=== PATIENT | male | born 1980 | race Caucasian/White ===

== ENCOUNTER 2016-10-28 00:41 | Inpatient (IN) | payer BC ==
[2016-10-28] VITALS (18 sets, daily range): BP systolic 78–112; BP diastolic 37–53; PULSE 76–110; RESP 16–20; Ht 165.1 cm; Wt 71.0 kg
[~2016-10-28] VITALS: Ht 165.1 cm; Wt 71.0 kg
[2016-10-28] MEDS ORDERED: SOD CHLORIDE 0.9% 1,000 ML IV STA (01:09)
[2016-10-28] MEDS ORDERED: IBUP200C PO (02:00)
[2016-10-28 02:19] LABS: ADD SCAN DIFF NO
[2016-10-28 02:22] LABS: BASOPHILS % 0.4 % (0.0-2.0); EOSINOPHILS % 0.1 % (0.0-7.0); HEMATOCRIT 23.2 % (42.0-52.0); HEMOGLOBIN 7.9 g/dl (14.0-18.0); LYMPHOCYTES # 1.2 10^3/ul (0.8-2.9); LYMPHOCYTES % 11.9 % (15.0-51.0); MEAN CORPUSCULAR HGB CONC 34.1 g/dl (32.0-37.0); MONOCYTE # 0.5 10^3/ul (0.3-0.9); MONOCYTES % 4.8 % (0.0-11.0); NEUTROPHIL # 8.4 10^3/ul (1.6-7.5); NEUTROPHILS % 82.3 % (39.0-77.0); PLATELET COUNT 131 10^3/UL (140-415); RED BLOOD COUNT 2.55 10^6/ul (4.70-6.10); RED CELL DISTRIBUTION WIDTH 11.9 % (11.5-14.5); WHITE BLOOD COUNT 10.2 10^3/ul (4.8-10.8)
[2016-10-28 02:38] LABS: INR 1.27; PT RATIO 1.3
[2016-10-28 02:39] LABS: PARTIAL THROMBOPLASTIN TIME 28.2 Sec (25.0-35.0)
[2016-10-28] MEDS ORDERED: HYDROmorphONE 1 MG/ML SYG IV STA (02:47)
[2016-10-28 02:48] LABS: ALANINE AMINOTRANSFERASE 42 IU/L (13-69); ALBUMIN 3.6 g/dl (3.3-4.9); ALBUMIN/GLOBULIN RATIO 2.11; ALKALINE PHOSPHATASE 44 IU/L (42-121); ANION GAP 5 (8-16); ASPARTATE AMINO TRANSFERASE 23 IU/L (15-46); BILIRUBIN,INDIRECT 0.3 mg/dl (0-1.1); BILIRUBIN,TOTAL 0.3 mg/dl (0.2-1.3); BLOOD UREA NITROGEN 33 mg/dl (7-20); CALCIUM 8.1 mg/dl (8.4-10.2); CARBON DIOXIDE 25 mmol/L (21-31); CHLORIDE 106 mmol/L (97-110); CREATININE 1.05 mg/dl (0.61-1.24); GLUCOSE 146 mg/dl (70-220); POTASSIUM 3.8 mmol/L (3.5-5.1); SODIUM 132 mmol/L (135-144); TOTAL PROTEIN 5.3 g/dl (6.1-8.1)
[2016-10-28] MEDS ORDERED: LORAZEPAM 2 MG INJ IV ONE (03:00)
[2016-10-28 03:08] LABS: TROPONIN-I < 0.012 ng/ml (0.00-0.12)
--- NOTE | 2016-10-28 03:10 | RADRPT ---
PROCEDURE: CT ABDOMEN/PELVIS WITHOUT CONTRAST CLINICAL INDICATION: 36-year-old male with abdominal pain and upper gastrointestinal bleeding. TECHNIQUE: The study was performed utilizing a [employer] VCT 64-slice CT scanner. Direct axia l sections were obtained through the abdomen and pelvis without the use of intravenous contrast mate rial. Sagittal and coronal reformations were obtained. One or more of the following dose reduction t echniques were utilized: automated exposure control, adjustment of the mA and/or kV according to pat ient's size or use of iterative reconstruction technique. The images were reviewed on a PACS workst atWhisher. CTD/vol = 10.1 mGy; Total Exam DLP = 612.3 mGy-cm. COMPARISON: None. FINDINGS: The lung bases are unremarkable. There is no evidence for significant pleural effusion. The liver has a normal size and contour without focal areas of abnormal density. No intrahepatic nor extrahepa tic biliary ductal dilatation is seen. The gallbladder demonstrates no wall thickening nor perichole cystic fluid. No biliary stones are evident. The pancreas is without areas of abnormal attenuation. The spleen is identified and has a normal size without abnormal density. The adrenal glands are unr emarkable. The kidneys are without abnormal density. No hydroureteronephrosis nor nephroureterolithi asis is evident. The urinary bladder contains urine. There is mild retained stool throughout the col on without gross bowel obstruction. The appendix is visualized and is without abnormal thickening o r surrounding inflammatory reaction. There is no significant free fluid. The aortoiliac vessels are without aneurysmal dilatation. Bilateral hip arthroplasties are present. IMPRESSION: 1. Retained stool throughout the colon without gross bowel obstruction. 2. No CT evidence for appendicitis. 3. Bilateral hip arthroplasties. .Rober Hendricks MD, MD Date Time Electronically viewed and signed by .Rober Hendricks MD, MD on 10/28/2016 03:09 .Jared/
--- NOTE | 2016-10-28 03:11 | RADRPT ---
PROCEDURE: CHEST - 1 VIEW CLINICAL INDICATION: 36-year-old male with chest/abdominal pain and possible upper gastrointestina l bleeding. TECHNIQUE: A single frontal AP upright portable view of the chest was performed. The images were reviewed on a PACS workstation. COMPARISON: Chest x-ray May 24, 2013. FINDINGS: The cardiomediastinal silhouette has a normal appearance. There is no evidence for an infiltrate. There is no evidence for congestive heart failure. There is no evidence for pneumothorax. The osseou s structures are intact. IMPRESSION: No evidence for active cardiopulmonary disease. .Rober Hendricks MD, MD Date Time Electronically viewed and signed by .Rober Hendricks MD, on 10/28/2016 03:10 ./
[2016-10-28] MEDS ORDERED: SOD CHLORIDE 0.9% 1,000 ML IV ONE (04:30)
--- NOTE | 2016-10-28 06:43 | HP ---
Date/Time of Note Date/Time of Note DATE: 10/28/16 TIME: 06:37 Assessment/Plan VTE Prophylaxis VTE Prophylaxis Intervention: SCD's Assessment/Plan Chief Complaint/Hosp Course This is a 36-year-old male being admitted to the telemetry floor for: #1 acute GI bleed: Possible combination of upper and/or lower GI bleed. Patient does report dark stool as well as bright red blood per rectum. And has epigastric pain. At the current time will check H&H every 6 hours. Will transfuse 1 unit packed red blood cells. Keep the patient n.p.o. IV fluids normal saline for hydration. Protonix IV twice daily will consult GI. CAT scan shows retained stool with no evidence of bowel obstruction. #2 Hyponatremia: Sodium of 132 this is likely possibly related to prerenal etiology. Will provide IV fluid hydration. Repeat BMP in the a.m. #3 DVT and GI prophylaxis: SCDs, Protonix twice daily Further treatment strategy will be implemented as per the clinical course Problems: HPI/ROS Admit Date/Time Admit Date/Time Oct 28, 2016 at 04:09 Hx of Present Illness Chief complaint abdominal pain, bloody stool This is a 36-year-old male coming in today to the emergency room complaining of abdominal pain and feeling dizzy with black stools 1 day. Patient states that he was having epigastric abdominal pain along with chills and feeling dizzy. He felt lightheaded as well. He states that he when he went to the bathroom he noticed black stool as well as bright red blood per rectum. Approximately 1 day prior he went to a restaurant and had salmon for dinner. Patient denies any history of previous GI bleeding at all. Allergies: NKDA Medications: None ROS Const: As per HPI Eyes : No pain discharge or redness or change in visual acuity ENT: No pain, sore throat, congestion, congestion, dysphagia or discharge Respiratory: No shortness of breath, cough, sputum, wheezing, or pleuritic pain Cardiovascular: No chest pain, palpitation, PND, or edema GI : As per HPI Genitourinary: No dysuria, hematuria, flank pain , discharge or CVA tenderness Musculoskeletal: No joint pain, back pain, neck pain, restricted range of motion in neck or joints Skin: No rash, bruising or hives Neuro: No headache, dizziness, syncope, seizure, focal weakness Endocrine: No polyuria, polydipsia, temperature intolerance Psych: No hallucination, depression, anxiety or suicidal ideation PMH/Family/Social Past Medical History Congenital hip dysplasia Past Surgical History Bilateral hip replacement Family History Significant Family History: hypertension (Mom) Social History Alcohol Use: none Smoking Status: Former smoker Drug Use: none Exam/Review of Systems Vital Signs Vitals Vital Signs Date Time Temp Pulse Resp B/P Pulse Ox O2 Delivery O2 Flow Rate FiO2 10/28/16 06:34 100 10/28/16 05:49 21 90/53 100 Room Air 10/28/16 00:45 98.3 Exam Exam General: Patient is lying in bed comfortably in no acute distress. He does appear pale. HEENT: Atraumatic, normocephalic. The pupils are equal, round and reactive. Extraocular motor are intact Neck: Supple with full range of motion. No rigidity or meningismus Chest: Nontender Lungs: Clear to auscultation bilaterally no crackles rales or wheezing Heart: Normal S1-S2, Regular rhythm and rate. No murmur, S3, or S4 Abdomen: Soft, tenderness to palpation around the epigastric region, normal bowel sounds Extremities: Normal to inspection, no edema no cyanosis Neurologic: Normal mental status, speech normal, cranial nerves II through XII are intact, motor and sensory are intact, no focal weakness Skin: Pale in appearance Additional Comments PROCEDURE: CT ABDOMEN/PELVIS WITHOUT CONTRAST CLINICAL INDICATION: 36-year-old male with abdominal pain and upper gastrointestinal bleeding. TECHNIQUE: The study was performed utilizing a [employer] V[employer] 64-slice CT scanner. Direct axial sections were obtained through the abdomen and pelvis without the use of intravenous contrast material. Sagittal and coronal reformations were obtained. One or more of the following dose reduction techniques were utilized: automated exposure control, adjustment of the mA and/ or kV according to patient's size or use of iterative reconstruction technique. The images were reviewed on a PACS workstation. CTD/vol = 10.1 mGy; Total Exam DLP = 612.3 mGy-cm. COMPARISON: None. FINDINGS: The lung bases are unremarkable. There is no evidence for significant pleural effusion. The liver has a normal size and contour without focal areas of abnormal density. No intrahepatic nor extrahepatic biliary ductal dilatation is seen. The gallbladder demonstrates no wall thickening nor pericholecystic fluid. No biliary stones are evident. The pancreas is without areas of abnormal attenuation. The spleen is identified and has a normal size without abnormal density. The adrenal glands are unremarkable. The kidneys are without abnormal density. No hydroureteronephrosis nor nephroureterolithiasis is evident. The urinary bladder contains urine. There is mild retained stool throughout the colon without gross bowel obstruction. The appendix is visualized and is without abnormal thickening or surrounding inflammatory reaction. There is no significant free fluid. The aortoiliac vessels are without aneurysmal dilatation. Bilateral hip arthroplasties are present. IMPRESSION: 1. Retained stool throughout the colon without gross bowel obstruction. 2. No CT evidence for appendicitis. 3. Bilateral hip arthroplasties. .Rober Hendricks MD, Date Time Electronically viewed and signed by .Rober Hendricks MD, MD on 10/28/2016 03:09 PROCEDURE: CHEST - 1 VIEW CLINICAL INDICATION: 36-year-old male with chest/abdominal pain and possible upper gastrointestinal bleeding. TECHNIQUE: A single frontal AP upright portable view of the chest was performed. The images were reviewed on a PACS workstation. COMPARISON: Chest x-ray May 24, 2013. FINDINGS: The cardiomediastinal silhouette has a normal appearance. There is no evidence for an infiltrate. There is no evidence for congestive heart failure. There is no evidence for pneumothorax. The osseous structures are intact. IMPRESSION: No evidence for active cardiopulmonary disease. .Rober Hendricks MD, MD Date Time Electronically viewed and signed by .Rober Hendricks MD, MD on 10/28/2016 03:10 Labs Result Diagram: 10/28/16 0152 10/28/16 0152 MIGUEL ANGEL WELDON Oct 28, 2016 06:43
[2016-10-28] MEDS: SOD CHLORIDE 0.9% 1,000 ML IV SCH ×2 (06:46→20:19)
[2016-10-28] MEDS: PANTOPRAZOLE 40 MG INJ IV SCH ×2 (06:51→20:30)
[2016-10-28] MEDS ORDERED: morphine 2 MG INJ IV PRN (07:00)
[2016-10-28] MEDS ORDERED: LIDOCAINE 2% (SDV) 5 ML INJ ONE (07:00)
[2016-10-28] MEDS ORDERED: ONDANSETRON 4 MG INJ IV PRN ×2 (07:00→19:30)
[2016-10-28] MEDS ORDERED: NACL 0.9% 3 ML SYG IV SCH (07:00)
--- NOTE | 2016-10-28 14:36 | CONS ---
Date/Time of Note Date/Time of Note DATE: 10/28/16 TIME: 14:28 Assessment/Plan Assessment/Plan Additional Assessment/Plan Assessment * Melena * Anemia acute Upper GI vs iron deficiency vs others Plan * EGD today risks and benefit explained to patient and agreed with the procedure * NPO Consultation Date/Type/Reason Admit Date/Time Oct 28, 2016 at 04:09 Date of Consultation: Oct 28, 2016 Type of Consultation: Gastroenterology Reason for Consultation Anemia/melena Referring Provider: MIGUEL ANGEL WELDON Hx of Present Illness 36 year old male who presented in the emergency room because of vague abdominal pain 2 day duration with associated dizziness and melena.Patient denies hematemesis,nor shortness of breath fever,nausea with induced vomiting.Emergency room course revealed hemoglobin of.7.9 and received 1 unit of blood .Ct scan of abdomen revealed. Retained stool throughout the colon without gross bowel obstruction.. No CT evidence for appendicitis.. Bilateral hip arthroplasties. We have explained to the patient tht an EGD is being planned today,risks and benefit explained to the patient Constitutional: improved, no complaints Eyes: no complaints ENT: no complaints Respiratory: no complaints Cardiovascular: no complaints Gastrointestinal: blood, constipation, pain Genitourinary: no complaints Musculoskeletal: no complaints Skin: no complaints Neurologic: no complaints Endocrine: no complaints Lymphatic: no complaints Psychological: nl mood/affect, no complaints Immunologic: no complaints Past Medical History Medical History: no pertinent history Past Surgical History Past Surgical Hx: no surgical history Family History Significant Family History: no pertinent family hx Social History Alcohol Use: none Smoking Status: Former smoker Drug Use: none Exam/Review of Systems Vital Signs Vitals Vital Signs Date Time Temp Pulse Resp B/P Pulse Ox O2 Delivery O2 Flow Rate FiO2 10/28/16 12:02 107 10/28/16 11:29 98.2 18 82/48 100 10/28/16 06:37 Room Air Exam Constitutional: alert, oriented, well developed Psych: nl mood/affect, no complaints Head: atraumatic, normocephalic Eyes: PERRL, nl conjunctiva, nl sclera ENMT: nl nasal mucosa & septum Neck: non-tender, supple Respiratory: clear to auscultation, normal air movement Cardiovascular: nl pulses, regular rate and rhythm Gastrointestinal: nl liver, spleen, non-tender, soft Musculoskeletal: nl extremities to inspection, nl gait and stance Extremities: normal pulses Neurological: nl mental status, nl speech, nl strength Skin: nl turgor, No rash or lesions Lymph: nl lymph nodes Results Result Diagram: 10/28/16 0642 10/28/16 0152 Results 24 hrs Laboratory Tests Test 10/28/16 01:52 10/28/16 06:42 White Blood Count 10.2 Red Blood Count 2.55 L Hemoglobin 7.9 L Hematocrit 23.2 L Mean Corpuscular Volume 91.0 Mean Corpuscular Hemoglobin 31.0 Mean Corpuscular Hemoglobin Concent 34.1 Red Cell Distribution Width 11.9 Platelet Count 131 L 109 L Mean Platelet Volume 11.0 H Neutrophils % 82.3 H Lymphocytes % 11.9 L Monocytes % 4.8 Eosinophils % 0.1 Basophils % 0.4 Nucleated Red Blood Cells % 0.0 Neutrophils # 8.4 H Lymphocytes # 1.2 Monocytes # 0.5 Eosinophils # 0.0 Basophils # 0.0 Nucleated Red Blood Cells # 0.0 Prothrombin Time 16.0 H Prothrombin Time Ratio 1.3 INR International Normalized Ratio 1.27 Activated Partial Thromboplast Time 28.2 Sodium Level 132 L Potassium Level 3.8 Chloride Level 106 Carbon Dioxide Level 25 Anion Gap 5 L Blood Urea Nitrogen 33 H Creatinine 1.05 Glucose Level 146 Calcium Level 8.1 L Total Bilirubin 0.3 Direct Bilirubin 0.00 Indirect Bilirubin 0.3 Aspartate Amino Transf (AST/SGOT) 23 Alanine Aminotransferase (ALT/SGPT) 42 Alkaline Phosphatase 44 Troponin I < 0.012 Total Protein 5.3 L Albumin 3.6 Globulin 1.70 Albumin/Globulin Ratio 2.11 Lipase 197 Medications Medications Current Medications Sodium Chloride (NS) 1,000 ml @ 75 mls/hr [id number] IV Last administered on 10/28 06:46; Admin Dose 75 MLS/HR; Start 10/28/16 at 06:33 Ondansetron HCl (Zofran Inj) 4 mg Q6H PRN IV NAUSEA AND/OR VOMITING; Start 04/04 at 07:00 Morphine Sulfate (morphine) 2 mg Q4H PRN IV PAIN LEVEL 7-10; Start 10/28/16 at 07:00 Pantoprazole (Protonix Iv) 40 mg BID@06,18 IV Last administered on 7/12/17at 06 :51; Admin Dose 40 MG; Start 10/28/16 at 07:00 Acetaminophen (Tylenol Tab) 650 mg Q6H PRN PO PAIN AND OR ELEVATED TEMP; Start 10/28/16 at 09:30 LUC OVERTON MD Oct 28, 2016 14:36
[2016-10-28] MEDS: ACETAMINOPHEN 325 MG TAB PO PRN (16:15)
[2016-10-28] MEDS ORDERED: MIDAZOLAM 1 MG/ML 2 ML INJ ONE (18:56)
[2016-10-28] MEDS ORDERED: PROPOFOL 20 ML ONE (18:57)
[2016-10-28] MEDS ORDERED: HYDROmorphONE (0.2 MG/ML) 10ML SYG IV PRN (19:30)
[2016-10-28] MEDS ORDERED: CA CHLORIDE 10% 10 ML SYRINGE ONE (19:36)
--- NOTE | 2016-10-28 19:37 | OPR ---
Date/Time of Note Date/Time of Note DATE: 10/28/16 TIME: 19:34 Operative Report Preoperative Diagnosis * GI bleeding/melena Postoperative Diagnosis Impression: * 2 cm active duodenal ulcer, no visible vessel, no active bleeding. * Mild esophagitis * Mild gastritis. Rule out H. pylori infection. Biopsies obtained Plan: * PPI twice daily i.e. Protonix 40 mg twice daily plus Carafate 1 g 4 times daily * Monitor H&H every 6 hours transfuse for hemoglobin less than 7.5 * Avoid nonsteroidal inflammatory agents and aspirin * Advance diet cautiously . Operation/Procedure Performed * EGD with biopsies Surgeon: LUC OVERTON MD Anesthesia: MAC Estimated Blood Loss: none Specimens * Gastric body and antrum Grafts/Implants * Not applicable Complications: None LUC OVERTON MD Oct 28, 2016 19:37
[2016-10-28] MEDS: SUCRALFATE 1 GM TAB PO SCH (20:31)
[2016-10-29 01:29] LABS: HEMATOCRIT 19.5 % (42.0-52.0)
[2016-10-29 01:35] LABS: HEMOGLOBIN 6.7 g/dl (14.0-18.0)
[2016-10-29] MEDS: SOD CHLORIDE 0.9% 1,000 ML IV SCH ×3 (02:01→20:28)
[2016-10-29] MEDS: PANTOPRAZOLE 40 MG INJ IV SCH ×2 (05:32→17:45)
[2016-10-29 07:01] VITALS: BP 89/53; RESP 19
[2016-10-29 07:19] LABS: ADD SCAN DIFF NO
[2016-10-29 07:23] LABS: ABNORMAL IP MESSAGE 1; BASOPHILS % 0.5 % (0.0-2.0); EOSINOPHILS % 0.3 % (0.0-7.0); HEMATOCRIT 23.2 % (42.0-52.0); HEMOGLOBIN 8.1 g/dl (14.0-18.0); LYMPHOCYTES # 1.9 10^3/ul (0.8-2.9); LYMPHOCYTES % 30.2 % (15.0-51.0); MEAN CORPUSCULAR HEMOGLOBIN 31.8 pg (29.0-33.0); MEAN CORPUSCULAR HGB CONC 34.9 g/dl (32.0-37.0); MEAN PLATELET VOLUME 10.4 fl (7.4-10.4); MONOCYTE # 0.6 10^3/ul (0.3-0.9); MONOCYTES % 8.7 % (0.0-11.0); NEUTROPHIL # 3.8 10^3/ul (1.6-7.5); NEUTROPHILS % 59.7 % (39.0-77.0); PLATELET COUNT 89 10^3/UL (140-415); RED BLOOD COUNT 2.55 10^6/ul (4.70-6.10); RED CELL DISTRIBUTION WIDTH 13.1 % (11.5-14.5); WHITE BLOOD COUNT 6.3 10^3/ul (4.8-10.8)
[2016-10-29 07:44] LABS: ALBUMIN 2.7 g/dl (3.3-4.9); ALBUMIN/GLOBULIN RATIO 1.58; CALCIUM 7.7 mg/dl (8.4-10.2); CHOL/HDL RATIO 3.6 RATIO; CREATININE 0.82 mg/dl (0.61-1.24); MAGNESIUM 1.6 mg/dl (1.7-2.5); POTASSIUM 3.6 mmol/L (3.5-5.1); TOTAL PROTEIN 4.4 g/dl (6.1-8.1)
[2016-10-29 07:49] LABS: IRON 169 ug/dl (35-150)
[2016-10-29 07:55] LABS: INR 1.16; PROTIME 14.9 Sec (12.2-14.2); PT RATIO 1.2
[2016-10-29 07:56] LABS: PARTIAL THROMBOPLASTIN TIME 30.4 Sec (25.0-35.0)
[2016-10-29 07:58] LABS: TOTAL IRON BINDING CAPACITY 218 ug/dl (241-421)
[2016-10-29 08:14] LABS: THYROID STIMULATING HORMONE 2.4 MIU/L (0.465-4.680)
[2016-10-29] MEDS: SUCRALFATE 1 GM TAB PO SCH ×4 (09:11→20:27)
[2016-10-29 09:52] VITALS: BP 105/59; PULSE 83; RESP 18
[2016-10-29 13:34] VITALS: BP 105/57; RESP 18
--- NOTE | 2016-10-29 14:02 | PN ---
Date/Time of Note Date/Time of Note DATE: 10/29/16 TIME: 13:56 Assessment/Plan VTE Prophylaxis VTE Prophylaxis Intervention: ambulation Lines/Catheters IV [facility] ([facility] Peripheral IV Urinary Cath still in place: No Assessment/Plan Assessment/Plan Assessment * Melena * Anemia acute EGD 2 cm active duodenal ulcer, no visible vessel, no active bleeding. Mild esophagitis Mild gastritis. Rule out H. pylori infection. Biopsies obtained Plan * continue present management * case discussed with Dr Guadalupe * Further orders will depend on clinical course Subjective 24 Hr Interval Summary Free Text/Dictation * Course reviewed with RN * Patient seen and examined * EGD 2 cm active duodenal ulcer, no visible vessel, no active bleeding. Mild esophagitis Mild gastritis. Rule out H. pylori infection. Biopsies obtained * still with melena * no abdominal pain Exam/Review of Systems Vital Signs Vitals Vital Signs Date Time Temp Pulse Resp B/P Pulse Ox O2 Delivery O2 Flow Rate FiO2 10/29/16 13:34 99.1 90 18 105/57 99 10/29/16 09:52 Room Air 10/28/16 20:20 3.0 Intake and Output 10/28/16 10/28/16 10/29/16 15:00 23:00 07:00 Output Total 700 ml Balance -700 ml Exam Constitutional: alert, oriented Psych: no complaints Neck: non-tender, supple Respiratory: clear to auscultation, normal air movement Cardiovascular: nl pulses, regular rate and rhythm Gastrointestinal: non-tender, soft Musculoskeletal: nl extremities to inspection, nl gait and stance Extremities: normal pulses Neurological: nl speech, nl strength Skin: rash or lesions Lymph: nl lymph nodes Results Result Diagram: 10/29/16 0659 10/29/16 0659 Results 24 hrs Laboratory Tests Test 10/29/16 00:40 10/29/16 06:25 10/29/16 06:59 Hemoglobin 6.7 *L 8.1 #L Hematocrit 19.5 L 23.2 L Lab Scanned Report BLOOD TRANSFUSION White Blood Count 6.3 # Red Blood Count 2.55 L Mean Corpuscular Volume 91.0 Mean Corpuscular Hemoglobin 31.8 Mean Corpuscular Hemoglobin Concent 34.9 Red Cell Distribution Width 13.1 Platelet Count 89 L Mean Platelet Volume 10.4 Neutrophils % 59.7 Lymphocytes % 30.2 Monocytes % 8.7 Eosinophils % 0.3 Basophils % 0.5 Nucleated Red Blood Cells % 0.0 Neutrophils # 3.8 Lymphocytes # 1.9 Monocytes # 0.6 Eosinophils # 0.0 Basophils # 0.0 Nucleated Red Blood Cells # 0.0 Prothrombin Time 14.9 H Prothrombin Time Ratio 1.2 INR International Normalized Ratio 1.16 Activated Partial Thromboplast Time 30.4 Sodium Level 132 L Potassium Level 3.6 Chloride Level 107 Carbon Dioxide Level 26 Anion Gap 3 L Blood Urea Nitrogen 14 # Creatinine 0.82 Glucose Level 91 # Hemoglobin A1c 5.0 Calcium Level 7.7 L Magnesium Level 1.6 L Iron Level 169 H Total Iron Binding Capacity 218 L Percent Iron Saturation 78 H Ferritin 21.1 Total Bilirubin 1.0 Direct Bilirubin 0.00 Indirect Bilirubin 1.0 Aspartate Amino Transf (AST/SGOT) 23 Alanine Aminotransferase (ALT/SGPT) 35 Alkaline Phosphatase 36 L Total Protein 4.4 L Albumin 2.7 L Globulin 1.70 Albumin/Globulin Ratio 1.58 Triglycerides Level 114 Cholesterol Level 65 L LDL Cholesterol, Calculated 24 HDL Cholesterol 18 L Cholesterol/HDL Ratio 3.6 Thyroid Stimulating Hormone (TSH) 2.400 Medications Medications Current Medications Sodium Chloride (NS) 1,000 ml @ 75 mls/hr [id number] IV Last administered on 10/29 02:02; Admin Dose 75 MLS/HR; Start 10/28/16 at 06:33 Ondansetron HCl (Zofran Inj) 4 mg Q6H PRN IV NAUSEA AND/OR VOMITING; Start 04/04 at 07:00 Morphine Sulfate (morphine) 2 mg Q4H PRN IV PAIN LEVEL 7-10; Start 10/28/16 at 07:00 Pantoprazole (Protonix Iv) 40 mg BID@06,18 IV Last administered on 10/29/16 05 :32; Admin Dose 40 MG; Start 10/28/16 at 07:00 Acetaminophen (Tylenol Tab) 650 mg Q6H PRN PO PAIN AND OR ELEVATED TEMP Last administered on 10/28/16 16:15; Admin Dose 650 MG; Start 10/28/16 at 09:30 Sucralfate (Carafate) 1 gm QID PO Last administered on 10/29/16 13:06; Admin Dose 1 GM; Start 10/28/16 at 21:00 CORBY OROZCO NP Oct 29, 2016 14:02
[2016-10-29 14:09] LABS: HEMATOCRIT 26.9 % (42.0-52.0); HEMOGLOBIN 9.3 g/dl (14.0-18.0)
[2016-10-29] MEDS: MAGNESIUM SULFATE 2 GM/50 ML 50 ML IVPB ONE ×2 (15:30→16:55)
--- NOTE | 2016-10-29 16:02 | PN ---
Date/Time of Note Date/Time of Note DATE: 10/29/16 TIME: 16:01 Assessment/Plan VTE Prophylaxis VTE Prophylaxis Intervention: SCD's Lines/Catheters IV [facility] Type (from [facility] Peripheral IV Urinary Cath still in place: No Assessment/Plan Chief Complaint/Hosp Course 1. Anemia secondary to acute blood loss. Status post esophagogastroduodenoscopy that showed a 2 cm anterior duodenal ulcer with mild esophagitis and mild gastritis. Continue proton pump inhibitors. Continue transfusion of blood products. 2. Thrombocytopenia. Etiology unclear. Monitor platelet count closely. Transfuse blood products as needed. 3. Fluids, electrolytes, and nutrition. Clear liquid diet. Advance diet as tolerated. 4. DVT prophylaxis with bilateral sequential compression devices. 5. Gastrointestinal prophylaxis. Proton pump inhibitors. 6. Plan. Continue current management. Replete magnesium. Await further recommendations from consultants. Case discussed with Dr. Holbrook. Problems: Subjective 24 Hr Interval Summary Free Text/Dictation Denies any abdominal pain. Continues to have melena. Exam/Review of Systems Vital Signs Vitals Vital Signs Date Time Temp Pulse Resp B/P Pulse Ox O2 Delivery O2 Flow Rate FiO2 10/29/16 13:34 99.1 90 18 105/57 99 10/29/16 09:52 Room Air 10/28/16 20:20 3.0 Intake and Output 10/28/16 10/28/16 10/29/16 15:00 23:00 07:00 Output Total 700 ml Balance -700 ml Exam General: Adequately build 36 year-old male lying in bed in no apparent distress. HEENT: Normocephalic, atraumatic. Eyes: Anicteric sclerae, conjunctivae clear. ENT: Nasal septum midline, oral mucosa moist. Neck supple, no JVD noticed. Respiratory: Bilaterally clear breath sounds. No use of accessory muscles of respiration. No adventitious breath sounds. Cardiovascular: S1, S2 heard. No murmurs or gallops. Abdomen: Soft, nontender, and nondistended. Bowel sounds positive in all 4 quadrants. Genitourinary: Deferred. Extremities: No cyanosis, no clubbing, no edema. Peripheral pulses palpable. Neurologic: Cranial nerves II through XII grossly intact. The patient is awake, alert, and oriented. Skin: Normal skin turgor. No skin rashes. Results Result Diagram: 10/29/16 1249 10/29/16 0659 Results 24 hrs Laboratory Tests Test 10/29/16 00:40 10/29/16 06:25 10/29/16 06:59 10/29/16 12:49 Hemoglobin 6.7 *L 8.1 #L 9.3 L Hematocrit 19.5 L 23.2 L 26.9 L Lab Scanned Report BLOOD TRANSFUSION White Blood Count 6.3 # Red Blood Count 2.55 L Mean Corpuscular Volume 91.0 Mean Corpuscular Hemoglobin 31.8 Mean Corpuscular Hemoglobin Concent 34.9 Red Cell Distribution Width 13.1 Platelet Count 89 L Mean Platelet Volume 10.4 Neutrophils % 59.7 Lymphocytes % 30.2 Monocytes % 8.7 Eosinophils % 0.3 Basophils % 0.5 Nucleated Red Blood Cells % 0.0 Neutrophils # 3.8 Lymphocytes # 1.9 Monocytes # 0.6 Eosinophils # 0.0 Basophils # 0.0 Nucleated Red Blood Cells # 0.0 Prothrombin Time 14.9 H Prothrombin Time Ratio 1.2 INR International Normalized Ratio 1.16 Activated Partial Thromboplast Time 30.4 Sodium Level 132 L Potassium Level 3.6 Chloride Level 107 Carbon Dioxide Level 26 Anion Gap 3 L Blood Urea Nitrogen 14 # Creatinine 0.82 Glucose Level 91 # Hemoglobin A1c 5.0 Calcium Level 7.7 L Magnesium Level 1.6 L Iron Level 169 H Total Iron Binding Capacity 218 L Percent Iron Saturation 78 H Ferritin 21.1 Total Bilirubin 1.0 Direct Bilirubin 0.00 Indirect Bilirubin 1.0 Aspartate Amino Transf (AST/SGOT) 23 Alanine Aminotransferase (ALT/SGPT) 35 Alkaline Phosphatase 36 L Total Protein 4.4 L Albumin 2.7 L Globulin 1.70 Albumin/Globulin Ratio 1.58 Triglycerides Level 114 Cholesterol Level 65 L LDL Cholesterol, Calculated 24 HDL Cholesterol 18 L Cholesterol/HDL Ratio 3.6 Thyroid Stimulating Hormone (TSH) 2.400 Medications Medications Current Medications Sodium Chloride (NS) 1,000 ml @ 75 mls/hr [id number] IV Last administered on 10/29t 02:02; Admin Dose 75 MLS/HR; Start 10/28/16 at 06:33 Ondansetron HCl (Zofran Inj) 4 mg Q6H PRN IV NAUSEA AND/OR VOMITING; Start 04/04 at 07:00 Morphine Sulfate (morphine) 2 mg Q4H PRN IV PAIN LEVEL 7-10; Start 10/28/16 at 07:00 Pantoprazole (Protonix Iv) 40 mg BID@06,18 IV Last administered on 10/29/16 05 :32; Admin Dose 40 MG; Start 10/28/16 at 07:00 Acetaminophen (Tylenol Tab) 650 mg Q6H PRN PO PAIN AND OR ELEVATED TEMP Last administered on 10/28/16 16:15; Admin Dose 650 MG; Start 10/28/16 at 09:30 Sucralfate 1 gm 1 gm QID PO Last administered on 10/29/16 13:06; Admin Dose 1 GM; Start 10/28/16 at 21:00 Magnesium Sulfate (Magnesium Sulfate 2 Gm/50 ml) 50 ml @ 25 mls/hr ONCE ONCE IVPB ; Start 10/29/16 at 15:30; Stop 10/29/16 at 17:29 ELROY COHEN NP Oct 29, 2016 16:02
[2016-10-29 16:27] LABS: HEMATOCRIT 27.6 % (42.0-52.0); HEMOGLOBIN 9.7 g/dl (14.0-18.0)
[2016-10-29 20:00] VITALS: BP 95/55; PULSE 89; RESP 16
[2016-10-29] MEDS: ACETAMINOPHEN 325 MG TAB PO PRN (20:39)
[2016-10-30 01:42] LABS: HEMOGLOBIN 8.9 g/dl (14.0-18.0)
[2016-10-30] MEDS: PANTOPRAZOLE 40 MG INJ IV SCH (05:57)
[2016-10-30 06:08] LABS: ADD SCAN DIFF NO
[2016-10-30 06:40] LABS: INR 1.13; PARTIAL THROMBOPLASTIN TIME 29.5 Sec (25.0-35.0); PROTIME 14.5 Sec (12.2-14.2); PT RATIO 1.1
[2016-10-30 06:47] LABS: CALCIUM 7.7 mg/dl (8.4-10.2); CREATININE 0.89 mg/dl (0.61-1.24); POTASSIUM 3.9 mmol/L (3.5-5.1)
[2016-10-30 06:58] LABS: MAGNESIUM 2.1 mg/dl (1.7-2.5); PHOSPHORUS 3.3 mg/dl (2.5-4.9)
[2016-10-30 07:39] VITALS: BP 96/53; RESP 16
[2016-10-30] MEDS: SUCRALFATE 1 GM TAB PO SCH ×2 (08:27→13:15)
[2016-10-30] MEDS: SOD CHLORIDE 0.9% 1,000 ML IV SCH (08:28)
[2016-10-30 09:45] LABS: ABNORMAL IP MESSAGE 1; BASOPHILS % 0.6 % (0.0-2.0); EOSINOPHILS # 0.1 10^3/ul (0.0-0.5); EOSINOPHILS % 0.9 % (0.0-7.0); HEMATOCRIT 26.9 % (42.0-52.0); HEMOGLOBIN 9.2 g/dl (14.0-18.0); LYMPHOCYTES # 2.1 10^3/ul (0.8-2.9); LYMPHOCYTES % 37.8 % (15.0-51.0); MEAN CORPUSCULAR HEMOGLOBIN 31.3 pg (29.0-33.0); MEAN CORPUSCULAR HGB CONC 34.2 g/dl (32.0-37.0); MEAN CORPUSCULAR VOLUME 91.5 fl (82.0-101.0); MEAN PLATELET VOLUME 11.2 fl (7.4-10.4); MONOCYTE # 0.6 10^3/ul (0.3-0.9); MONOCYTES % 10.1 % (0.0-11.0); NEUTROPHIL # 2.7 10^3/ul (1.6-7.5); NEUTROPHILS % 49.9 % (39.0-77.0); PLATELET COUNT 94 10^3/UL (140-415); RED BLOOD COUNT 2.94 10^6/ul (4.70-6.10); RED CELL DISTRIBUTION WIDTH 13.4 % (11.5-14.5); WHITE BLOOD COUNT 5.5 10^3/ul (4.8-10.8)
--- NOTE | 2016-10-30 11:49 | PN ---
Date/Time of Note Date/Time of Note DATE: 10/30/16 TIME: 11:42 Assessment/Plan VTE Prophylaxis VTE Prophylaxis Intervention: ambulation Lines/Catheters IV Catheter Type (from Rust): Saline Lock Urinary Cath still in place: No Assessment/Plan Assessment/Plan ssessment * Melena * Anemia acute EGD 2 cm active duodenal ulcer, no visible vessel, no active bleeding. Mild esophagitis Mild gastritis. H. pylori infection Plan * Amoxicillin 1 gram BID x14 days * Clarithromycin 500 mg bid x14 day * Pantoprazole 40 mg BID x8 weeks * Stable for outpatient management * Repeat EGD after 8 weeks to reassess duodenal ulcer healing * Case discussed with Dr Guadalupe * Further orders will depend on clinical course Subjective 24 Hr Interval Summary Free Text/Dictation * Course reviewed with RN * Patient seen and examined * No untoward events overnight * Biopsy revealed Gastric biopsy: -- Antral mucosa showing severe chronic gastritis. -- Oxyntic mucosa showing minimal plasma cell infiltration. -- Helicobacter pylori is identified in Giemsa stain (positive control concurrently reviewed). -- No evidence of intestinal metaplasia, dysplasia or malignancy. Exam/Review of Systems Vital Signs Vitals Vital Signs Date Time Temp Pulse Resp B/P Pulse Ox O2 Delivery O2 Flow Rate FiO2 10/30/16 07:39 98.5 72 16 96/53 98 10/29/16 20:00 Room Air 10/28/16 20:20 3.0 Intake and Output 10/29/16 10/29/16 10/30/16 15:00 23:00 07:00 Intake Total 350 ml 1810 ml 675 ml Balance 350 ml 1810 ml 675 ml Exam Constitutional: alert, oriented Neck: non-tender, supple Respiratory: clear to auscultation, normal air movement Cardiovascular: nl pulses, regular rate and rhythm Gastrointestinal: nl liver, spleen, non-tender, soft Musculoskeletal: nl extremities to inspection, nl gait and stance Extremities: normal pulses Neurological: nl speech, nl strength Skin: nl turgor, No rash or lesions Results Result Diagram: 10/30/16 0526 10/30/16 0526 Results 24 hrs Laboratory Tests Test 10/29/16 12:49 10/29/16 16:20 10/30/16 01:00 10/30/16 05:26 Hemoglobin 9.3 L 9.7 L 8.9 L 9.2 L Hematocrit 26.9 L 27.6 L 25.0 L 26.9 L White Blood Count 5.5 Red Blood Count 2.94 L Mean Corpuscular Volume 91.5 Mean Corpuscular Hemoglobin 31.3 Mean Corpuscular Hemoglobin Concent 34.2 Red Cell Distribution Width 13.4 Platelet Count 94 L Mean Platelet Volume 11.2 H Neutrophils % 49.9 Lymphocytes % 37.8 Monocytes % 10.1 Eosinophils % 0.9 Basophils % 0.6 Nucleated Red Blood Cells % 0.0 Neutrophils # 2.7 Lymphocytes # 2.1 Monocytes # 0.6 Eosinophils # 0.1 Basophils # 0.0 Nucleated Red Blood Cells # 0.0 Prothrombin Time 14.5 H Prothrombin Time Ratio 1.1 INR International Normalized Ratio 1.13 Activated Partial Thromboplast Time 29.5 Sodium Level 138 Potassium Level 3.9 Chloride Level 110 Carbon Dioxide Level 27 Anion Gap 5 L Blood Urea Nitrogen 9 Creatinine 0.89 Glucose Level 97 Calcium Level 7.7 L Phosphorus Level 3.3 Magnesium Level 2.1 Test 10/30/16 07:33 Lab Scanned Report BLOOD TRANSFUSION Medications Medications Current Medications Sodium Chloride (NS) 1,000 ml @ 75 mls/hr [id number] IV Last administered on 10/30 08:28; Admin Dose 75 MLS/HR; Start 10/28/16 at 06:33 Ondansetron HCl (Zofran Inj) 4 mg Q6H PRN IV NAUSEA AND/OR VOMITING; Start 04/04 at 07:00 Morphine Sulfate (morphine) 2 mg Q4H PRN IV PAIN LEVEL 7-10; Start 10/28/16 at 07:00 Pantoprazole (Protonix Iv) 40 mg BID@06,18 IV Last administered on 10/30/16 05 :57; Admin Dose 40 MG; Start 10/28/16 at 07:00 Acetaminophen (Tylenol Tab) 650 mg Q6H PRN PO PAIN AND OR ELEVATED TEMP Last administered on 10/29/16 20:39; Admin Dose 650 MG; Start 10/28/16 at 09:30 Sucralfate (Carafate) 1 gm QID PO Last administered on 10/30/16 08:27; Admin Dose 1 GM; Start 10/28/16 at 21:00 CORBY OROZCO NP Oct 30, 2016 11:49
--- NOTE | 2016-10-30 12:33 | PDOCDIS ---
Discharge Instructions DIAGNOSIS Discharge Diagnosis Duodenal ulcers. H. pylori infection. CONDITION Patient Condition: Stable HOME CARE INSTRUCTIONS: Diet Instructions: RegularSpecial Diet: Regular Diet FOLLOW UP/APPOINTMENTS Follow-up Plan Tiffanie Guadalupe MD [facility] Office Address [address] [place] [address] Office OTHER ORDERS: Other Orders: 1. Regular diet as tolerated. 2. Finish the course of antibiotics and Protonix. 3. Resume activities as tolerated. 4. Follow-up with Dr. Guadalupe for a repeat EGDscopy in 8 weeks. SCHOOL/WORK RELEASE May return to School/Work on: Nov 02, 2016 May return to School/Work with: No Restrictions ELROY COHEN NP Oct 30, 2016 12:33
[2016-10-30 12:35] LABS: HEMATOCRIT 31.6 % (42.0-52.0); HEMOGLOBIN 10.6 g/dl (14.0-18.0)
[2016-10-30] MEDS ORDERED: PANT40TA3 PO (12:35)
[2016-10-30] MEDS ORDERED: AMO500 PO (12:35)
[2016-10-30] MEDS ORDERED: CLAR500T39 PO (12:35)
--- NOTE | 2016-10-30 14:04 | DS ---
Date/Time of Note Date/Time of Note DATE: 10/30/16 TIME: 14:03 Discharge Summary Admission/Discharge Info Admit Date/Time Oct 28, 2016 at 04:09 Discharge Date/Time Discharge Diagnosis 1. Duodenal ulcers. 2. H. pylori infection. 3. Anemia secondary to blood loss. 4. Thrombocytopenia. Patient Condition: Stable Consults 1. Tiffanie Guadalupe MD. Gastroenterology. Procedures Esophagogastroduodenoscopy Impression: * 2 cm active duodenal ulcer, no visible vessel, no active bleeding. * Mild esophagitis * Mild gastritis. Rule out H. pylori infection. Biopsies obtained Hx of Present Illness Chief complaint: Abdominal pain, bloody stool This is a 36-year-old male who came to the emergency room complaining of abdominal pain and feeling dizzy with black stools 1 day. Patient states that he was having epigastric abdominal pain along with chills and feeling dizzy. He felt lightheaded as well. He states that he when he went to the bathroom he noticed black stool as well as bright red blood per rectum. Approximately 1 day prior he went to a restaurant and had salmon for dinner. Patient denies any history of previous GI bleeding at all. Allergies: NKDA Medications: None Hospital Course The patient was admitted to inpatient telemetry floor. Gastroenterology consult was called. The patient was started on Protonix drip. The patient was provided with the blood products. The patient underwent esophagogastroduodenoscopy on 10/28/2016 that showed a 2 cm active duodenal ulcer with no visible vessel and no active bleeding. The EGD scopy also revealed mild esophagitis and mild gastritis. The patient's pathology from the gastric biopsy showed positive Helicobacter pylori. The biopsy was negative for any malignancy. Therefore, it was concluded that the patient's gastrointestinal bleeding was most probably secondary to H. pylori infection. The patient is not a alcohol abuser. The patient has no prior history of gastrointestinal bleeding. The patient had no evidence of iron deficiency. Patient was also noticed to have thrombocytopenia. Etiology of this remains unclear. The patient's platelet count remained stable throughout the patient's hospital course. The patient had a total of 3 units of PRBC transfusion during this admission. The patient had a stable hospital course. The patient was cleared by gastroenterology to be discharged home. Discharge Instructions 1. Regular diet as tolerated. 2. Finish the course of antibiotics and Protonix. 3. Resume activities as tolerated. 4. Follow-up with Dr. Guadalupe for a repeat EGDscopy in 8 weeks. The patient verbalized understanding of his discharge instructions. I would like to thank Dr. Guadalupe for seeing the patient, doing the necessary procedures, and providing clinical recommendations. Case discussed with Dr. Holbrook. Home Meds Active Scripts Pantoprazole* (Protonix*) 40 Mg Tablet.dr, 40 MG PO BID for 56 Days, TAB Prov:ELROY COHEN [employer] PROFESSOR 10/30/16 Clarithromycin* (Biaxin*) 500 Mg Tablet, 500 MG PO BID for 14 Days, TAB Prov:ELROY COHEN NP 10/30/16 Amoxicillin* (Amoxicillin*) 500 Mg Cap, 1000 MG PO BID for 14 Days, CAP Prov:ELROY COHEN NP 10/30/16 Discontinued Reported Medications Ibuprofen* (Ibuprofen*) 200 Mg Capsule, 400 MG PO QID Y for PAIN, CAP 10/28/16 Follow-up Plan Follow-up with Dr. Guadalupe in 8 weeks for repeat esophagogastroduodenoscopy. Primary Care Provider Not On Staff Doctor Time spent on discharge: > 30 minutes Pending Labs Laboratory Tests Test 10/29/16 16:20 10/30/16 01:00 10/30/16 05:26 10/30/16 07:33 Hemoglobin 9.7g/dl (14.0-18.0) 8.9g/dl (14.0-18.0) 9.2g/dl (14.0-18.0) Hematocrit 27.6% (42.0-52.0) 25.0% (42.0-52.0) 26.9% (42.0-52.0) White Blood Count 5.510^3/ul (4.8-10.8) Red Blood Count 2.9410^6/ul (4.70-6.10) Mean Corpuscular Volume 91.5fl (82.0-101.0) Mean Corpuscular Hemoglobin 31.3pg (29.0-33.0) Mean Corpuscular Hemoglobin Concent 34.2g/dl (32.0-37.0) Red Cell Distribution Width 13.4% (11.5-14.5) Platelet Count 9410^3/UL (140-415) Mean Platelet Volume 11.2fl (7.4-10.4) Neutrophils % 49.9% (39.0-77.0) Lymphocytes % 37.8% (15.0-51.0) Monocytes % 10.1% (0.0-11.0) Eosinophils % 0.9% (0.0-7.0) Basophils % 0.6% (0.0-2.0) Nucleated Red Blood Cells % 0.0/100WBC (0.0-0.0) Neutrophils # 2.710^3/ul (1.6-7.5) Lymphocytes # 2.110^3/ul (0.8-2.9) Monocytes # 0.610^3/ul (0.3-0.9) Eosinophils # 0.110^3/ul (0.0-0.5) Basophils # 0.010^3/ul (0.0-0.1) Nucleated Red Blood Cells # 0.010^3/ul (0.0-0.0) Prothrombin Time 14.5Sec (12.2-14.2) Prothrombin Time Ratio 1.1 INR International Normalized Ratio 1.13 Activated Partial Thromboplast Time 29.5Sec (25.0-35.0) Sodium Level 138mmol/L (135-144) Potassium Level 3.9mmol/L (3.5-5.1) Chloride Level 110mmol/L (97-110) Carbon Dioxide Level 27mmol/L (21-31) Anion Gap 5 (8-16) Blood Urea Nitrogen 9mg/dl (7-20) Creatinine 0.89mg/dl (0.61-1.24) Glucose Level 97mg/dl (70-220) Calcium Level 7.7mg/dl (8.4-10.2) Phosphorus Level 3.3mg/dl (2.5-4.9) Magnesium Level 2.1mg/dl (1.7-2.5) Lab Scanned Report BLOOD [id number] Test 10/30/16 12:08 Hemoglobin 10.6g/dl (14.0-18.0) Hematocrit 31.6% (42.0-52.0) ELROY COHEN NP Oct 30, 2016 14:04
[2016-10-30] MEDS ORDERED: CLARITHROMYCIN 500 MG TAB PO SCH (21:00)
[2016-10-30] MEDS ORDERED: AMOXICILLIN 500 MG CAP PO SCH (21:00)
== END 2016-10-30 14:15 | disposition home or self-care (01) | DRG 384 ==
LOC: E/R 00:41 → TEL 04:09 → E/R 06:18 → MS2 10-29 09:35
PROVIDERS: ADMIT Family Medicine; ATTEND Family Medicine
PROC: 30233N1 Transfusion of Nonautologous Red Blood Cells into Peripheral Vein, Percutaneous Approach (ICD-10-PCS; 2016-10-28)
PROC: 0DB68ZX Excision of Stomach, Via Natural or Artificial Opening Endoscopic, Diagnostic (ICD-10-PCS; principal; 2016-10-28 18:30)
DX: K26.9 Duodenal ulcer, unspecified as acute or chronic, without hemorrhage or perforation (principal); A04.8 Other specified bacterial intestinal infections; D69.6 Thrombocytopenia, unspecified; E87.1 Hypo-osmolality and hyponatremia; D62 Acute posthemorrhagic anemia; K92.2 Gastrointestinal hemorrhage, unspecified; K20.9 Esophagitis, unspecified; K29.70 Gastritis, unspecified, without bleeding
CPT/HCPCS: 36430; 71010; 74176; 80048; 80053; 80061; 82728; 83036; 83540; 83690; 83735; 84100; 84443; 84484; 85014; 85018; 85025; 85049; 85610; 85730; 86850; 86900; 86901; 86920; 93005; C9113; J2250; J3475; J7030; P9016